=== PATIENT | male | born 1975 | race Caucasian/White ===

== ENCOUNTER 2016-11-15 19:59 | Emergency (ER) ==
[2016-11-15 20:14] VITALS: BP 149/92; TEMP 98.2; BMI 22.3
[2016-11-15] MEDS ORDERED: PHENERGAN WITH CODEINE 6.25/10 MG/5 ML PO STA (20:15)
[2016-11-15] MEDS ORDERED: DUONEB NEB STA (20:15)
[2016-11-15] MEDS ORDERED: DECADRON 4 MG/ML SDV IM STA (20:15)
--- NOTE | 2016-11-15 20:18 | ED.PDOC ---
General ED Provider: Dr. NORMA JETT Chief Complaint: Cough Stated Complaint: Been coughing, congestion, getting sputum, hurts to cough, now wheezing. Time Seen by Physician: 20:16 Mode of Arrival: Walk-In Information Source: Patient Primary Care Provider: TULIO TINEO Nursing and Triage Documentation Reviewed and Agree: Yes Respiratory Complaint Exam - Respiratory Complaint/Exam Symptoms Are: Still present Timing: Constant Initial Severity: Moderate Current Severity: Moderate Location: Chest Character: Reports: Productive cough Aggravating: Reports: URI Alleviating: Reports: None Associated Signs and Symptoms: Reports: URI, Nasal congestion. Denies: Rapid breathing, Dyspnea, Fever, Chills, Chest pain, Pleuritic chest pain, Wheezing, Hemoptysis, Dizziness, Calf pain, Calf swelling, Edema, Hoarseness, Sinus discomfort, Vomiting, Sore throat, Weight loss, Decreased oral intake, Increased thirst, Increased appetite, Increased urination Related History: Reports: Similar episode History of Healthcare-Acquired Pneumonia: No Related Surgical History: Reports: None Pulmonary Embolism Risk Factors: None Cardiac Risk Factors: Reports: None Pseudomonas Risk Factors: Reports: None Tuberculosis Risk Factors: Reports: None Status Asthmaticus Risk Factors: Reports: None Home Oxygen Use: No Recent Stress Test: No Recent Echo/LV Function: No Respiratory Distress: None Inadequate Respiratory Effort: No Dysphagia Present: No Stridor Present: No JVD Present: No Accessory Muscle Use: No Retractions: Not Present Sinus Tenderness: None Grunting Respirations: No Kussmaul Respirations: No Differential Diagnoses: Pneumonia, Bronchitis Review of Systems - Review Of Systems Constitutional: Reports: Malaise, Weakness Eyes: Reports: No symptoms Ears, Nose, Mouth, Throat: Reports: No symptoms Respiratory: Reports: Cough, Wheezing Cardiac: Reports: No symptoms GI: Reports: No symptoms : Reports: No symptoms Musculoskeletal: Reports: No symptoms Skin: Reports: No symptoms Neurological: Reports: No symptoms Endocrine: Reports: No symptoms Hematologic/Lymphatic: Reports: No symptoms All Other Systems: Reviewed and Negative Past Medical History - Past Medical History Previously Healthy: No Endocrine: Reports: None Cardiovascular: Reports: None Respiratory: Reports: None Hematological: Reports: None Gastrointestinal: Reports: None Genitourinary: Reports: None Neuro/Psych: Reports: Seizure Musculoskeletal: Reports: None Cancer: Reports: None Other Pertinent Past Medical History: Brain cyst - Surgical History General Surgical History: Reports: Other (Had left facial cyst removed today ) - Family History Family History: Reports: None - Social History Smoking Status: Current every day smoker, Heavy tobacco smoker Smoking Cessation Counseling Time: > 10 min Hx Substance Use: Yes ( A TEENAGER) Alcohol Screening: Occasionally - Immunizations Tetanus Shot up to Date: Yes Physical Exam - Physical Exam Appearance: Ill-appearing Ill-appearing: Mild Eyes: MANDO, EOMI, Conjunctiva clear ENT: Ears normal, Nose normal, Oropharynx normal Respiratory: Wheezes Cardiovascular: RRR, Pulses normal, No rub, No murmur GI/: Soft, Nontender, No masses, Bowel sounds normal, No Organomegaly Musculoskeletal: Normal strength, ROM intact, No edema, No calf tenderness Skin: Warm, Dry, Normal color Neurological: Sensation intact, Motor intact, Reflexes intact, Cranial nerves intact, Alert, Oriented Psychiatric: Affect appropriate, Mood appropriate Interpretation - Radiology Interpretation Radiology Interpretation By: ED Physician Radiology Results: Negative Critical Care Note - Critical Care Note Total Time (mins): 0 Course - Course Orders, Labs, Meds: Orders Category Date Time Status NEBULIZER TREATMENT Stat CARDIO 11/15/16 20:16 Ordered Codeine/Promethazine Syrup [Phenergan with Codeine 6.25 MEDS 11/15/16 20:15 Discontinued /10 mg/5 ml] 10 ml PO ONCE STA Dexamethasone 4 mg/ml Inj [Decadron 4 mg/ml Sdv] MEDS 11/15/16 20:15 Discontinued 4 mg IM ONCE STA Ipratropium/Albuterol Neb [Duoneb] MEDS 11/15/16 20:15 Discontinued 1 vial NEB ONCE STA CHEST, 2 VIEWS PA & LAT Stat RADS 11/15/16 20:15 Taken Medications Discontinued Medications Generic Name Dose Route Start Last Admin Trade Name Freq PRN Reason Stop Dose Admin Albuterol/Ipratropium 1 vial 11/15/16 20:15 11/15/16 20:27 Duoneb NEB 11/15/16 20:16 1 vial ONCE STA Administration Dexamethasone Sodium Phosphate 4 mg 11/15/16 20:15 11/15/16 20:25 Decadron 4 Mg/Ml Sdv IM 11/15/16 20:16 4 mg ONCE STA Administration Promethazine HCl/Codeine 10 ml 11/15/16 20:15 11/15/16 20:24 Phenergan With Codeine 6.25/10 Mg/5 Ml PO 11/15/16 20:16 10 ml ONCE STA Administration Vital Signs: Temp Pulse Resp BP Pulse Ox 11/15/16 20:00 98.2 F 83 20 149/92 H 100 Departure - Departure Time of Disposition: 20:48 Disposition: HOME SELF-CARE Discharge Problem: URTI (acute upper respiratory infection) Instructions: Upper Respiratory Infection (ED) Condition: Stable Pt referred to PMD for follow-up: Yes Additional Instructions: ADVISED TO QUITE SMOKING, SMOKING LUNG CANCER RISK DISCUSSED. IF NOT BETTER NEEDS F/U Prescriptions: Albuterol Sulfate [Ventolin Hfa] 18 gm IH TID #1 hfa.aer.ad Azithromycin [Zithromax] 250 mg PO DIRECTED #6 tablet Codeine/Promethazine Syrup [Phenergan with Codeine 6.25/10 mg/5 ml] 5 ml PO Q8H #1 bottle Methylprednisolone [Medrol Dosepak] 4 mg PO DIRECTED #1 pkg Allergies/Adverse Reactions: Allergies ceftriaxone [From Rocephin] Adverse Reaction (Verified 11/15/16 20:09) latex Adverse Reaction (Verified 11/15/16 20:09) levetiracetam [From Keppra] Adverse Reaction (Verified 11/15/16 20:09) Penicillins Adverse Reaction (Verified 11/15/16 20:09) amoxcillin Adverse Reaction (Severe, Uncoded 11/15/16 20:09) Anaphylaxis Home Medications: Ambulatory Orders Calcium Carbonate [Calcium] 500 mg PO DAILY 03/31/14 Divalproex Sodium [Depakote] 500 mg PO BID 03/31/14 Epinephrine [Epipen 2-Gal] 0.3 mg IJ ONCE PRN #1 ml 07/11/15 Albuterol Sulfate [Ventolin Hfa] 18 gm IH TID #1 hfa.aer.ad 11/15/16 Azithromycin [Zithromax] 250 mg PO DIRECTED #6 tablet 11/15/16 Carboxymethylcellulose Sodium [Refresh Tears] 1 drop OP QID 11/15/16 Codeine/Promethazine Syrup [Phenergan with Codeine 6.25/10 mg/5 ml] 5 ml PO Q8H #1 bottle 11/15/16 Methylprednisolone [Medrol Dosepak] 4 mg PO DIRECTED #1 pkg 11/15/16 Valacyclovir HCl [Valtrex] 500 mg PO Q12HR 11/15/16 Disposition Discussed With: Patient, Family
[2016-11-15] MEDS ORDERED: ZITHROMAX PO STA (20:49)
[2016-11-15] MEDS ORDERED: ZITHROMAX ONE (20:50)
--- NOTE | 2016-11-16 06:51 | DI ---
EXAM: PA and lateral views of the chest HISTORY: Cough. COMPARISON: Chest x-ray 07/23/2015 FINDINGS: The cardiomediastinal silhouette is normal. There is no pneumothorax or pleural effusion . There is no consolidation, nodule or mass. The osseous structures are unremarkable. Surgical cli ps are noted in the right upper quadrant consistent with cholecystectomy. IMPRESSION: No acute cardiopulmonary process
== END 2016-11-15 20:55 | disposition home or self-care (01) ==
LOC: ED 19:59
DX: J06.9 Acute upper respiratory infection, unspecified (principal); F17.210 Nicotine dependence, cigarettes, uncomplicated; Z79.899 Other long term (current) drug therapy
CPT/HCPCS: 94640; 96372; 99283

== ENCOUNTER 2016-11-16 09:42 | Outpatient (CLI) | payer OTHER ==
[2016-11-15 20:14] VITALS: BMI 22.3
== END 2016-11-16 09:43 | disposition home or self-care (01) ==
LOC: LAB 09:42
PROVIDERS: ATTEND Clinical Nurse Specialist Adult Health
DX: Z51.81 Encounter for therapeutic drug level monitoring (principal); Z79.899 Other long term (current) drug therapy
CPT/HCPCS: 36415; 80164

== ENCOUNTER 2016-11-23 17:21 | Emergency (ER) ==
[2016-11-23 17:22] VITALS: BMI 22.3
[2016-11-23 17:30] VITALS: BP 135/91; TEMP 98.2
[2016-11-23] MEDS ORDERED: DUONEB NEB STA (17:43)
--- NOTE | 2016-11-23 17:52 | ED.PDOC ---
General ED Provider: Dr. NIKKI MCNULTY Chief Complaint: Nausea/Vomiting Mode of Arrival: Walk-In Information Source: Patient Primary Care Provider: TULIO TINEO Past Medical History - Past Medical History Previously Healthy: No Endocrine: Reports: None Cardiovascular: Reports: None Respiratory: Reports: None Hematological: Reports: None Gastrointestinal: Reports: None Genitourinary: Reports: None Neuro/Psych: Reports: Seizure Musculoskeletal: Reports: None Cancer: Reports: None Other Pertinent Past Medical History: Brain cyst - Surgical History General Surgical History: Reports: Other (Had left facial cyst removed today ) - Family History Family History: Reports: None - Social History Smoking Status: Current every day smoker, Heavy tobacco smoker Hx Substance Use: Yes ( A TEENAGER) Alcohol Screening: Occasionally Course - Course Orders, Labs, Meds: Orders Category Date Time Status EKG-(ED ONLY) Stat CARDIO 11/23/16 17:45 Ordered NEBULIZER TREATMENT Stat CARDIO 11/23/16 17:43 Ordered AMYLASE Stat LAB 11/23/16 17:43 Ordered CBC W/ AUTO DIFF Stat LAB 11/23/16 17:43 Ordered COMPREHENSIVE METABOLIC PANEL Stat LAB 11/23/16 17:43 Ordered LIPASE Stat LAB 11/23/16 17:43 Ordered RAPID FLU A/B Stat LAB 11/23/16 17:44 Uncollected STREP SCREEN Stat LAB 11/23/16 17:44 Uncollected Ipratropium/Albuterol Neb [Duoneb] MEDS 11/23/16 17:43 Stat 1 vial NEB ONCE STA CHEST, 2 VIEWS PA & LAT Stat RADS 11/23/16 17:[address] ABDOMEN/PELVIS WO CONTRAST Stat RADS 11/23/16 17:43 Ordered Medications Discontinued Medications Generic Name Dose Route Start Last Admin Trade Name Freq PRN Reason Stop Dose Admin Albuterol/Ipratropium 1 vial 11/23/16 17:43 Duoneb NEB 11/23/16 17:44 ONCE STA Vital Signs: Temp Pulse Resp BP Pulse Ox 11/23/16 17:22 98.2 F 90 20 135/91 H 98 Departure - Departure Allergies/Adverse Reactions: Allergies ceftriaxone [From Rocephin] Adverse Reaction (Verified 11/23/16 17:31) latex Adverse Reaction (Verified 11/23/16 17:31) levetiracetam [From Keppra] Adverse Reaction (Verified 11/23/16 17:31) Penicillins Adverse Reaction (Verified 11/23/16 17:31) amoxcillin Adverse Reaction (Severe, Uncoded 11/15/16 20:09) Anaphylaxis Home Medications: Ambulatory Orders Calcium Carbonate [Calcium] 500 mg PO DAILY 03/31/14 Divalproex Sodium [Depakote] 500 mg PO BID 03/31/14 Epinephrine [Epipen 2-Gal] 0.3 mg IJ ONCE PRN #1 ml 07/11/15 Albuterol Sulfate [Ventolin Hfa] 18 gm IH TID #1 hfa.aer.ad 11/15/16 Carboxymethylcellulose Sodium [Refresh Tears] 1 drop OP QID 11/15/16 Codeine/Promethazine Syrup [Phenergan with Codeine 6.25/10 mg/5 ml] 5 ml PO Q8H #1 bottle 11/15/16 Valacyclovir HCl [Valtrex] 500 mg PO Q12HR 11/15/16
[2016-11-23 17:55] LABS: BASOPHILS # (AUTO) 0.1 K/uL (0-0.2); BASOPHILS % (AUTO) 0.4 % (0.0-3.0); EOSINOPHILS # (AUTO) 0.1 K/ul (0.0-0.7); EOSINOPHILS % (AUTO) 0.7 % (0.0-7.0); HEMATOCRIT 50.9 % (42.0-52.0); IMMATURE GRANULOCYTE % (AUTO) 0.3 % (0.0-5.0); LYMPHOCYTES % (AUTO) 16.7 (10.0-50.0); MEAN CORPUSCULAR HEMOGLOBIN 32.2 pg (27.0-31.0); MEAN CORPUSCULAR HGB CONC 35.4 (31.8-35.4); MEAN CORPUSCULAR VOLUME 91.1 fl (80.0-94.0); MONOCYTES # (AUTO) 0.9 K/uL (0.4-2.0); MONOCYTES % (AUTO) 5.3 (0-10); NEUTROPHILS # (AUTO) 13.6 K/ul (2.0-6.9); NEUTROPHILS % (AUTO) 76.6; PLATELET COUNT 294 10^3/uL (140-440); RED BLOOD COUNT 5.59 10^6/ul (4.70-6.10); WHITE BLOOD COUNT 17.81 K/ul (4.2-10.2)
--- NOTE | 2016-11-23 18:09 | ED.PDOC ---
General ED Provider: Dr. NIKKI MCNULTY Chief Complaint: Nausea/Vomiting Stated Complaint: ABDOMINAL PAIN Time Seen by Physician: 17:30 Mode of Arrival: Walk-In Information Source: Patient Exam Limitations: No limitations Primary Care Provider: TULIO TINEO Nursing and Triage Documentation Reviewed and Agree: Yes GI Complaint Exam - Abdominal Pain Complaint/Exam Onset: Gradual (TODAY 5 HRS AGO) Duration: 1 HR AGOI MORE PAIN Symptoms Are: Still present (VOMITED X 6) Initial Severity: Moderate Current Severity: None Location of Pain: RLQ, LLQ Character: Reports: Aching Aggravating: Reports: None Alleviating: Reports: None Associated Signs and Symptoms: Reports: Nausea, Vomiting. Denies: Diaphoresis, Fever, Cough, Chest pain, Dizziness, Back pain, Constipation, Blood in stool, Dysuria, Urinary frequency, Decreased urine output, Decreased appetite, Discharge, Diarrhea, Decreased activity AAA Risk Factors: Reports: None Cardiac Risk Factors: Reports: None Testicular Torsion Risk Factors: Reports: None Surgical Obstruction Risk Factors: Reports: None Related Surgical History: Reports: Cholecystectomy Abdominal Findings: Absent: Pulsatile mass (GAURDING) Quality Indicators for AMI: EKG in 10min. Quality Indicators for Cardiac Chest Pain: EKG in 10min. Quality Indicator For Non-Traumatic Chest Pain/Syncope: EKG Performed Review of Systems - Review Of Systems Constitutional: Reports: No symptoms Eyes: Reports: No symptoms Ears, Nose, Mouth, Throat: Reports: No symptoms Respiratory: Reports: No symptoms Cardiac: Reports: No symptoms GI: Reports: Abdominal pain, Nausea, Vomiting : Reports: No symptoms Musculoskeletal: Reports: No symptoms Skin: Reports: No symptoms Neurological: Reports: No symptoms Endocrine: Reports: No symptoms Hematologic/Lymphatic: Reports: No symptoms All Other Systems: Reviewed and Negative Past Medical History - Past Medical History Previously Healthy: No Endocrine: Reports: None Cardiovascular: Reports: None Respiratory: Reports: None Hematological: Reports: None Gastrointestinal: Reports: None Genitourinary: Reports: None Neuro/Psych: Reports: Seizure Musculoskeletal: Reports: None Cancer: Reports: None Other Pertinent Past Medical History: Brain cyst - Surgical History General Surgical History: Reports: Other (Had left facial cyst removed today ) - Family History Family History: Reports: None - Social History Smoking Status: Current every day smoker, Heavy tobacco smoker Hx Substance Use: Yes ( A TEENAGER) Alcohol Screening: Occasionally Physical Exam - Physical Exam Appearance: Well-appearing, No pain distress, Well-nourished Eyes: MANDO, EOMI, Conjunctiva clear ENT: Ears normal, Nose normal, Oropharynx normal Respiratory: Airway patent, Breath sounds clear, Breath sounds equal, Respirations nonlabored Cardiovascular: RRR, Pulses normal, No rub, No murmur GI/: Soft, Nontender, No masses, Bowel sounds normal, No Organomegaly Musculoskeletal: Normal strength, ROM intact, No edema, No calf tenderness Skin: Warm, Dry, Normal color Neurological: Sensation intact, Motor intact, Reflexes intact, Cranial nerves intact, Alert, Oriented Psychiatric: Affect appropriate, Mood appropriate Critical Care Note - Critical Care Note Total Time (mins): 0 Course - Course Hematology/Chemistry: 11/23/16 17:45 11/23/16 17:45 Orders, Labs, Meds: Lab Review 11/23/16 17:45 WBC 17.81 H RBC 5.59 Hgb 18.0 Hct 50.9 MCV 91.1 MCH 32.2 H MCHC 35.4 RDW Coeff of Dann 14.0 Plt Count 294 Immature Gran % (Auto) 0.3 Neut % (Auto) 76.6 Lymph % (Auto) 16.7 [place] % (Auto) 5.3 Eos % (Auto) 0.7 Baso % (Auto) 0.4 Immature Gran # (Auto) 0.1 Neut # 13.6 H Lymph # 3.0 [place] # 0.9 Eos # 0.1 Baso # 0.1 Sodium 138 Potassium 3.9 Chloride 101 Carbon Dioxide 24 Anion Gap 16.9 BUN 7 Creatinine 0.79 Estimated GFR (MDRD) 109.00 BUN/Creatinine Ratio 8.86 Glucose 81 Calcium 9.7 Total Bilirubin 0.93 AST 15 ALT 11 L Alkaline Phosphatase 63 Total Protein 7.8 Albumin 4.3 Globulin 3.5 Albumin/Globulin Ratio 1.23 Amylase 83 Lipase 16 Influenza A (Rapid) Negative Influenza B (Rapid) Negative Orders Category Date Time Status EKG-(ED ONLY) Stat CARDIO 11/23/16 17:45 Completed NEBULIZER TREATMENT Stat CARDIO 11/23/16 17:43 Completed AMYLASE Stat LAB 11/23/16 17:45 Completed CBC W/ AUTO DIFF Stat LAB 11/23/16 17:45 Completed COMPREHENSIVE METABOLIC PANEL Stat LAB 11/23/16 17:45 Completed LIPASE Stat LAB 11/23/16 17:45 Completed MOLECULAR GROUP A STREP Stat LAB 11/23/16 17:45 Results RAPID FLU A/B Stat LAB 11/23/16 17:45 Completed STREP SCREEN Stat LAB 11/23/16 17:45 Results Ipratropium/Albuterol Neb [Duoneb] MEDS 11/23/16 17:43 Discontinued 1 vial NEB ONCE STA CHEST, 2 VIEWS PA & LAT Stat RADS 11/23/16 17:[address] ABDOMEN/PELVIS WO CONTRAST Stat RADS 11/23/16 17:43 Completed Medications Discontinued Medications Generic Name Dose Route Start Last Admin Trade Name Freq PRN Reason Stop Dose Admin Albuterol/Ipratropium 1 vial 11/23/16 17:43 Duoneb NEB 11/23/16 17:44 ONCE STA Vital Signs: Temp Pulse Resp BP Pulse Ox 11/23/16 17:22 98.2 F 90 20 135/91 H 98 Departure - Departure Time of Disposition: 18:43 Disposition: HOME SELF-CARE Discharge Problem: Nausea, Vomiting Abdominal pain Qualifiers: Abdominal location: unspecified location Qualifier Code: (R10.9) Unspecified abdominal pain Instructions: Acute Abdominal Pain (ED), Abdominal Pain (ED) Condition: Good Pt referred to PMD for follow-up: No Additional Instructions: Please call your Family Physician as soon as possible to schedule a follow-up appointment. Allergies/Adverse Reactions: Allergies ceftriaxone [From Rocephin] Adverse Reaction (Verified 11/23/16 17:31) latex Adverse Reaction (Verified 11/23/16 17:31) levetiracetam [From Keppra] Adverse Reaction (Verified 11/23/16 17:31) Penicillins Adverse Reaction (Verified 11/23/16 17:31) amoxcillin Adverse Reaction (Severe, Uncoded 11/15/16 20:09) Anaphylaxis Home Medications: Ambulatory Orders Calcium Carbonate [Calcium] 500 mg PO DAILY 03/31/14 Divalproex Sodium [Depakote] 500 mg PO BID 03/31/14 Epinephrine [Epipen 2-Gal] 0.3 mg IJ ONCE PRN #1 ml 07/11/15 Albuterol Sulfate [Ventolin Hfa] 18 gm IH TID #1 hfa.aer.ad 11/15/16 Carboxymethylcellulose Sodium [Refresh Tears] 1 drop OP QID 11/15/16 Codeine/Promethazine Syrup [Phenergan with Codeine 6.25/10 mg/5 ml] 5 ml PO Q8H #1 bottle 11/15/16 Valacyclovir HCl [Valtrex] 500 mg PO Q12HR 11/15/16 Disposition Discussed With: Patient, Family
[2016-11-23 18:15] LABS: ALBUMIN 4.3 g/dL (3.4-5.0); ALBUMIN/GLOBULIN RATIO 1.23; ANION GAP 16.9; BILIRUBIN,TOTAL 0.93 mg/dL (0.00-1.20); BUN/CREATININE RATIO 8.86; CALCIUM 9.7 mg/dL (8.2-10.2); CREATININE 0.79 mg/dL (0.60-1.10); POTASSIUM 3.9 mmol/L (3.5-5.1); TOTAL PROTEIN 7.8 g/dL (6.4-8.2)
[2016-11-23 18:17] LABS: FLU INTERNAL QC INTERNAL QC VALID; RAPID FLU A NEGATIVE (NEGATIVE); RAPID FLU B NEGATIVE (NEGATIVE)
--- NOTE | 2016-11-23 18:30 | CT ---
EXAM: CT of the abdomen pelvis without contrast History: Abdominal pain. Comparison: CT abdomen pelvis 07/23/2015 Technique: Multiplanar CT images through the abdomen pelvis were obtained without the administratio n of IV contrast Findings: Lung bases are free of consolidation. Calcified granuloma again seen within the right lo wer lobe. No acute osseous abnormalities. Cholecystectomy clips. No focal liver lesions. Calcified granulomas within the spleen. No renal st ones and no hydronephrosis. The visualized appendix is not dilated or inflamed. Fluid distended st omach. There are prominent fluid filled loops of small bowel and fluid is seen within portions of t he colon. No free air. No ascites. No peripancreatic inflammation. Adrenal glands are unremarkab le. Mild atherosclerotic vascular calcifications. Bladder is not well distended but there is no fo maico bladder wall thickening. No perirectal inflammation. Prostate is not enlarged. Impression: CT findings are consistent with a mild gastroenterocolitis. There is no specific evide nce for bowel obstruction.
--- NOTE | 2016-11-23 18:34 | DI ---
EXAM: Two views of the chest. History: Cough. Comparison: Chest radiograph 11/15/2016 Findings: Heart size is normal. No focal consolidation. No appreciable pleural fluid and no pneum othorax. No acute osseous abnormalities. Impression: No acute cardiopulmonary process.
== END 2016-11-23 19:13 | disposition home or self-care (01) ==
LOC: ED 17:21
DX: R11.2 Nausea with vomiting, unspecified (principal); R10.30 Lower abdominal pain, unspecified; F17.210 Nicotine dependence, cigarettes, uncomplicated; Z98.890 Other specified postprocedural states; Z79.899 Other long term (current) drug therapy
CPT/HCPCS: 36415; 80053; 82150; 83690; 85025; 87651; 87804; 87880; 93005; 93010; 99283

== ENCOUNTER → 2017-04-29 | Outpatient (POV) | LOC: OUTPT 00:01 | PROVIDERS: ATTEND Otolaryngology | DX: H91.90 Unspecified hearing loss, unspecified ear (principal) | CPT/HCPCS: 92557; 92567 ==

== ENCOUNTER 2017-09-06 11:59 | Outpatient (CLI) ==
[2017-09-06 12:44] LABS: BASOPHILS # (AUTO) 0.1 K/uL (0-0.2); BASOPHILS % (AUTO) 0.8 % (0.0-3.0); EOSINOPHILS # (AUTO) 0.1 K/ul (0.0-0.7); EOSINOPHILS % (AUTO) 0.7 % (0.0-7.0); HEMATOCRIT 46.1 % (42.0-52.0); HEMOGLOBIN 16.6 g/dl (14.0-18.0); IMMATURE GRANULOCYTE % (AUTO) 0.3 % (0.0-5.0); LYMPHOCYTES # (AUTO) 3.2 K/uL (0.60-3.4); LYMPHOCYTES % (AUTO) 36.4 (10.0-50.0); MEAN CORPUSCULAR HEMOGLOBIN 32.5 pg (27.0-31.0); MEAN CORPUSCULAR VOLUME 90.4 fl (80.0-94.0); MONOCYTES # (AUTO) 0.7 K/uL (0.4-2.0); MONOCYTES % (AUTO) 7.6 (0-10); NEUTROPHILS # (AUTO) 4.8 K/ul (2.0-6.9); NEUTROPHILS % (AUTO) 54.2; PLATELET COUNT 262 10^3/uL (140-440)
[2017-09-06 13:39] LABS: ALBUMIN 3.9 g/dL (3.4-5.0); ALBUMIN/GLOBULIN RATIO 1.22; ANION GAP 12.1; BILIRUBIN,TOTAL 0.4 mg/dL (0.00-1.20); BUN/CREATININE RATIO 6.66; CALCIUM 9.9 mg/dL (8.2-10.2); CREATININE 0.75 mg/dL (0.60-1.10); POTASSIUM 4.1 mmol/L (3.5-5.1); TOTAL PROTEIN 7.1 g/dL (6.4-8.2); VALPORIC ACID (DEPAKENE) 11.1 ug/mL (50.00-100.00)
== END 2017-09-06 12:00 | disposition home or self-care (01) ==
LOC: LAB 11:59
PROVIDERS: ATTEND Clinical Nurse Specialist Adult Health
DX: G40.419 Other generalized epilepsy and epileptic syndromes, intractable, without status epilepticus (principal); Z79.899 Other long term (current) drug therapy
CPT/HCPCS: 36415; 80053; 80164; 85025

== ENCOUNTER 2017-09-11 14:08 | Emergency (ER) ==
[2017-09-11 14:16] VITALS: BP 152/92; TEMP 96.9; BMI 23.0
[2017-09-11] MEDS ORDERED: DECADRON 4 MG/ML SDV IM STA (14:43)
[2017-09-11] MEDS ORDERED: ZITHROMAX PO STA (14:43)
[2017-09-11] MEDS ORDERED: TYLENOL/CODEINE ELIXIR 120/12 MG/5 ML PO STA (14:44)
[2017-09-11] MEDS ORDERED: DUONEB NEB STA (14:44)
[2017-09-11 14:58] LABS: BASOPHILS # (AUTO) 0.1 K/uL (0-0.2); BASOPHILS % (AUTO) 0.7 % (0.0-3.0); EOSINOPHILS % (AUTO) 0.5 % (0.0-7.0); HEMATOCRIT 42.4 % (42.0-52.0); HEMOGLOBIN 15.3 g/dl (14.0-18.0); IMMATURE GRANULOCYTE % (AUTO) 0.3 % (0.0-5.0); LYMPHOCYTES # (AUTO) 2.3 K/uL (0.60-3.4); LYMPHOCYTES % (AUTO) 30.6 (10.0-50.0); MEAN CORPUSCULAR HEMOGLOBIN 32.3 pg (27.0-31.0); MEAN CORPUSCULAR HGB CONC 36.1 (31.8-35.4); MEAN CORPUSCULAR VOLUME 89.5 fl (80.0-94.0); MONOCYTES # (AUTO) 0.6 K/uL (0.4-2.0); MONOCYTES % (AUTO) 8.1 (0-10); NEUTROPHILS # (AUTO) 4.5 K/ul (2.0-6.9); NEUTROPHILS % (AUTO) 59.8; PLATELET COUNT 211 10^3/uL (140-440); RED BLOOD COUNT 4.74 10^6/ul (4.70-6.10); WHITE BLOOD COUNT 7.43 K/ul (4.2-10.2)
[2017-09-11 15:28] LABS: ALBUMIN 3.6 g/dL (3.4-5.0); ALBUMIN/GLOBULIN RATIO 1.2; ANION GAP 12.7; BILIRUBIN,TOTAL 0.29 mg/dL (0.00-1.20); BUN/CREATININE RATIO 5.47; CALCIUM 9.5 mg/dL (8.2-10.2); CREATININE 0.73 mg/dL (0.60-1.10); POTASSIUM 3.7 mmol/L (3.5-5.1); TOTAL PROTEIN 6.6 g/dL (6.4-8.2)
[2017-09-11 15:34] LABS: FLU INTERNAL QC INTERNAL QC VALID; RAPID FLU A NEGATIVE (NEGATIVE); RAPID FLU B NEGATIVE (NEGATIVE)
--- NOTE | 2017-09-11 15:40 | DI ---
Exam: Two x-rays of the chest. Comparison: 11/23/2016. Reason for exam: Cough. FINDINGS: No pneumothorax, pleural effusion, or focal consolidation. The cardiac silhouette is not enlarged. The imaged osseous structures appear grossly unremarkable without acute fracture. Impression: No acute cardiopulmonary process.
--- NOTE | 2017-09-11 16:16 | ED.PDOC ---
General ED Provider: Dr. NIKKI MCNULTY Chief Complaint: Respiratory Complaint Stated Complaint: cough, chills Time Seen by Physician: 14:24 Mode of Arrival: Walk-In Information Source: Patient Exam Limitations: No limitations Primary Care Provider: TULIO TINEO Nursing and Triage Documentation Reviewed and Agree: Yes Respiratory Complaint Exam - Respiratory Complaint/Exam Onset/Duration: 2 days Symptoms Are: Still present Timing: Intermittent Initial Severity: Moderate Current Severity: Mild Location: Nose, Throat, Chest Character: Reports: Non-productive cough Aggravating: Reports: None Alleviating: Reports: Spontaneous resolution Associated Signs and Symptoms: Reports: Wheezing, URI, Nasal congestion. Denies : Rapid breathing, Dyspnea, Fever, Chills, Chest pain, Pleuritic chest pain, Hemoptysis, Dizziness, Calf pain, Calf swelling, Edema, Hoarseness, Sinus discomfort, Vomiting, Sore throat, Weight loss, Decreased oral intake, Increased thirst, Increased appetite, Increased urination Related History: Reports: Similar episode History of Healthcare-Acquired Pneumonia: No Related Surgical History: Reports: None Pulmonary Embolism Risk Factors: None Cardiac Risk Factors: Reports: None Pseudomonas Risk Factors: Reports: None Tuberculosis Risk Factors: Reports: None Status Asthmaticus Risk Factors: Reports: None Home Oxygen Use: No Recent Stress Test: No Recent Echo/LV Function: No Current Antibiotic Use: No Current Asthma Medication Use: No Respiratory Distress: None Inadequate Respiratory Effort: No Dysphagia Present: No Stridor Present: No JVD Present: No Accessory Muscle Use: No Retractions: Not Present Diminished Breath Sounds: No Sinus Tenderness: None Grunting Respirations: No Kussmaul Respirations: No Differential Diagnoses: Pneumonia, Bronchitis Review of Systems - Review Of Systems Constitutional: Reports: Malaise Eyes: Reports: No symptoms Ears, Nose, Mouth, Throat: Reports: No symptoms Respiratory: Reports: Cough, Wheezing Cardiac: Reports: No symptoms GI: Reports: No symptoms : Reports: No symptoms Musculoskeletal: Reports: No symptoms Skin: Reports: No symptoms Neurological: Reports: No symptoms Endocrine: Reports: No symptoms Hematologic/Lymphatic: Reports: No symptoms All Other Systems: Reviewed and Negative Past Medical History - Past Medical History Previously Healthy: No Endocrine: Reports: None Cardiovascular: Reports: None Respiratory: Reports: None Hematological: Reports: None Gastrointestinal: Reports: None Genitourinary: Reports: None Neuro/Psych: Reports: Seizure Musculoskeletal: Reports: None Cancer: Reports: None Other Pertinent Past Medical History: Brain cyst - Surgical History General Surgical History: Reports: Other (Had left facial cyst removed today ) - Family History Family History: Reports: None - Social History Smoking Status: Current some day smoker Hx Substance Use: No Alcohol Screening: Occasionally - Immunizations Tetanus Shot up to Date: Yes Physical Exam - Physical Exam Appearance: Well-appearing, No pain distress, Well-nourished Eyes: MANDO, EOMI, Conjunctiva clear ENT: Ears normal, Nose normal, Oropharynx normal Respiratory: Rhonchi Cardiovascular: RRR, Pulses normal, No rub, No murmur GI/: Soft, Nontender, No masses, Bowel sounds normal, No Organomegaly Musculoskeletal: Normal strength, ROM intact, No edema, No calf tenderness Skin: Warm, Dry, Normal color Neurological: Sensation intact, Motor intact, Reflexes intact, Cranial nerves intact, Alert, Oriented Psychiatric: Affect appropriate, Mood appropriate Interpretation - Radiology Interpretation Radiology Interpretation By: Radiologist Radiology Results: No acute changes Exam Interpreted: CXR Critical Care Note - Critical Care Note Total Time (mins): 0 Course - Course Hematology/Chemistry: 09/11/17 14:52 09/11/17 14:52 Orders, Labs, Meds: Lab Review 09/11/17 09/11/17 09/11/17 14:52 14:52 15:10 WBC 7.43 RBC 4.74 Hgb 15.3 Hct 42.4 MCV 89.5 MCH 32.3 H MCHC 36.1 H RDW Coeff of Dann 13.2 Plt Count 211 Immature Gran % (Auto) 0.3 Neut % (Auto) 59.8 Lymph % (Auto) 30.6 [place] % (Auto) 8.1 Eos % (Auto) 0.5 Baso % (Auto) 0.7 Immature Gran # (Auto) 0.0 Neut # 4.5 Lymph # 2.3 [place] # 0.6 Eos # 0.0 Baso # 0.1 Sodium 137 Potassium 3.7 Chloride 104 Carbon Dioxide 24 Anion Gap 12.7 BUN 4 L Creatinine 0.73 Estimated GFR (MDRD) 119.00 BUN/Creatinine Ratio 5.47 Glucose 90 Calcium 9.5 Total Bilirubin 0.29 AST 11 L ALT 13 Alkaline Phosphatase 56 Total Protein 6.6 Albumin 3.6 Globulin 3.0 Albumin/Globulin Ratio 1.20 Influenza A (Rapid) Negative Influenza B (Rapid) Negative Orders Category Date Time Status NEBULIZER TREATMENT Stat CARDIO 09/11/17 14:44 Completed CBC W/ AUTO DIFF Stat LAB 09/11/17 14:52 Completed COMPREHENSIVE METABOLIC PANEL Stat LAB 09/11/17 14:52 Completed MOLECULAR GROUP A STREP Stat LAB 09/11/17 15:10 Results RAPID FLU A/B Stat LAB 09/11/17 15:10 Completed STREP SCREEN Stat LAB 09/11/17 15:10 Results Acetaminophen with Codeine [Tylenol/Codeine Elixir 120/ MEDS 09/11/17 14:44 Discontinued 12 mg/5 ml] 15 ml PO ONCE STA Azithromycin [Zithromax] MEDS 09/11/17 14:43 Discontinued 1,000 mg PO ONCE STA Dexamethasone 4 mg/ml Inj [Decadron 4 mg/ml Sdv] MEDS 09/11/17 14:43 Discontinued 8 mg IM ONCE STA Ipratropium/Albuterol Neb [Duoneb] MEDS 09/11/17 14:44 Discontinued 1 vial NEB ONCE STA CHEST, 2 VIEWS PA & LAT Stat RADS 09/11/17 14:45 Completed Medications Discontinued Medications Generic Name Dose Route Start Last Admin Trade Name Freq PRN Reason Stop Dose Admin Acetaminophen/Codeine Phosphate 15 ml 09/11/17 14:44 09/11/17 14:59 Tylenol/Codeine Elixir 120/12 Mg/5 Ml PO 09/11/17 14:45 15 ml ONCE STA Administration Albuterol/Ipratropium 1 vial 09/11/17 14:44 09/11/17 14:57 Duoneb NEB 09/11/17 14:45 1 vial ONCE STA Administration Azithromycin 1,000 mg 09/11/17 14:43 09/11/17 15:02 Zithromax PO 09/11/17 14:44 1,000 mg ONCE STA Administration Dexamethasone Sodium Phosphate 8 mg 09/11/17 14:43 09/11/17 15:03 Decadron 4 Mg/Ml Sdv IM 09/11/17 14:44 8 mg ONCE STA Administration Vital Signs: Temp Pulse Resp BP Pulse Ox 09/11/17 14:10 96.9 F L 82 16 152/92 H 97 Departure - Departure Time of Disposition: 16:16 Disposition: HOME SELF-CARE Discharge Problem: Bronchitis Instructions: Acute Bronchitis (ED), Wheezing (ED), Croup in Adults (ED), Bronchospasm (ED) Condition: Good Pt referred to PMD for follow-up: Yes Additional Instructions: Please call your Family Physician as soon as possible to schedule a follow-up appointment.start pills in am Prescriptions: Hydrocodone/Chlorphen Polis [Tussionex] 5 ml PO Q12HR 5 Days disp.syrin Azithromycin [Zithromax] 500 mg PO DIRECTED #5 tablet Allergies/Adverse Reactions: Allergies ceftriaxone [From Rocephin] Adverse Reaction (Verified 09/11/17 14:20) latex Adverse Reaction (Verified 09/11/17 14:20) levetiracetam [From Keppra] Adverse Reaction (Verified 09/11/17 14:20) Penicillins Adverse Reaction (Verified 09/11/17 14:20) amoxcillin Adverse Reaction (Severe, Uncoded 11/15/16 20:09) Anaphylaxis Home Medications: Ambulatory Orders Divalproex Sodium [Depakote] 500 mg PO BID 03/31/14 Epinephrine [Epipen 2-Gal] 0.3 mg IJ ONCE PRN #1 ml 07/11/15 Carboxymethylcellulose Sodium [Refresh Tears] 1 drop OP QID 11/15/16 Valacyclovir HCl [Valtrex] 500 mg PO Q12HR 11/15/16 Azithromycin [Zithromax] 500 mg PO DIRECTED #5 tablet 09/11/17 Hydrocodone/Chlorphen Polis [Tussionex] 5 ml PO Q12HR 5 Days disp.syrin
== END 2017-09-11 16:24 | disposition home or self-care (01) ==
LOC: ED 14:08
DX: J40 Bronchitis, not specified as acute or chronic (principal); F17.210 Nicotine dependence, cigarettes, uncomplicated
CPT/HCPCS: 36415; 80053; 85025; 87651; 87804; 87880; 94640; 96372; 99283

== ENCOUNTER 2017-11-10 07:06 | Emergency (ER) ==
[2017-11-10 07:10] VITALS: BP 172/100; TEMP 98.9; BMI 22.3
[2017-11-10] MEDS ORDERED: PROTONIX IV IVP STA (07:17)
[2017-11-10] MEDS ORDERED: SOLU-MEDROL 125 MG IVP STA (07:17)
[2017-11-10] MEDS ORDERED: BENADRYL IM STA (07:17)
--- NOTE | 2017-11-10 08:02 | ED.PDOC ---
General ED Provider: Dr. NIKKI MCNULTY Chief Complaint: Allergic Reaction Stated Complaint: rash Time Seen by Physician: 07:00 (no resp issue pt has had similar reaction before ) Mode of Arrival: Walk-In Information Source: Patient, Family Exam Limitations: No limitations Primary Care Provider: TULIO TINEO Nursing and Triage Documentation Reviewed and Agree: Yes Reviewed sepsis parameters & appropriate labs ordered?: Yes System Inflammatory Response Syndrome: Not Applicable Sepsis Protocol: For patient's 13 years and over: Temp is 96.8 and below OR 101 and greater Pulse >90 BPM Resp >20/minute Acutely Altered Mental Status Are patient's symptoms suggestive of a new infection, such as: -Pneumonia -Skin, Soft Tissue -Endocarditis -UTI -Bone, Joint Infection -Implantable Device -Acute Abdominal Infection -Wound Infection -Meningitis -Blood Stream Catheter Infection -Unknown System Inflammatory Response Syndrome: Not Applicable Skin Complaint Exam - Skin Rash/Itching Complaint/Exam Onset/Duration: this morning sudden onset Symptoms Are: Still present Initial Severity: Mild Current Severity: Mild Potential Exposures: Reports: Unknown Aggravating: Reports: None Alleviating: Reports: None Associated Signs and Symptoms: Denies: Difficulty breathing, Fever, Chills Related History: Similar episode Skin Findings: Present: Target lesions, Maculae, Papules Differential Diagnoses: Allergic Reaction Review of Systems - Review Of Systems Constitutional: Reports: No symptoms Eyes: Reports: No symptoms Ears, Nose, Mouth, Throat: Reports: No symptoms Respiratory: Reports: No symptoms Cardiac: Reports: No symptoms GI: Reports: No symptoms : Reports: No symptoms Musculoskeletal: Reports: No symptoms Skin: Reports: Rash Neurological: Reports: No symptoms Endocrine: Reports: No symptoms Hematologic/Lymphatic: Reports: No symptoms All Other Systems: Reviewed and Negative Past Medical History - Past Medical History Previously Healthy: No Endocrine: Reports: None Cardiovascular: Reports: None Respiratory: Reports: None Hematological: Reports: None Gastrointestinal: Reports: None Genitourinary: Reports: None Neuro/Psych: Reports: Seizure Musculoskeletal: Reports: None Cancer: Reports: None Other Pertinent Past Medical History: Brain cyst - Surgical History General Surgical History: Reports: Other (Had left facial cyst removed today ) - Family History Family History: Reports: None - Social History Smoking Status: Current some day smoker Hx Substance Use: No Alcohol Screening: Occasionally Physical Exam - Physical Exam Appearance: Well-appearing, No pain distress, Well-nourished Eyes: MANDO, EOMI, Conjunctiva clear ENT: Ears normal, Nose normal, Oropharynx normal Respiratory: Airway patent, Breath sounds clear, Breath sounds equal, Respirations nonlabored Cardiovascular: RRR, Pulses normal, No rub, No murmur GI/: Soft, Nontender, No masses, Bowel sounds normal, No Organomegaly Musculoskeletal: Normal strength, ROM intact, No edema, No calf tenderness Skin: Warm, Dry (rash chest arm leg ) Neurological: Sensation intact, Motor intact, Reflexes intact, Cranial nerves intact, Alert, Oriented Psychiatric: Affect appropriate, Mood appropriate Critical Care Note - Critical Care Note Total Time (mins): 0 Course - Course Hematology/Chemistry: 11/10/17 07:25 Orders, Labs, Meds: Lab Review 11/10/17 07:25 WBC 14.25 H RBC 5.04 Hgb 16.7 Hct 46.2 MCV 91.7 MCH 33.1 H MCHC 36.1 H RDW Coeff of Dann 13.1 Plt Count 256 Immature Gran % (Auto) 0.3 Neut % (Auto) 67.1 Lymph % (Auto) 24.6 [place] % (Auto) 7.1 Eos % (Auto) 0.6 Baso % (Auto) 0.3 Immature Gran # (Auto) 0.0 Neut # 9.6 H Lymph # 3.5 H [place] # 1.0 Eos # 0.1 Baso # 0.0 Orders Category Date Time Status EKG-(ED ONLY) Stat CARDIO 11/10/17 07:18 Ordered BLOOD CULTURE (ED ONLY) Stat LAB 11/10/17 Ordered CBC W/ AUTO DIFF Stat LAB 11/10/17 07:18 Ordered COMPREHENSIVE METABOLIC PANEL Stat LAB 11/10/17 07:18 Ordered Diphenhydramine Inj [Benadryl] MEDS 11/10/17 07:17 Stat 50 mg IM ONCE STA Methylprednisolone Sod Succ/Pf [Solu-Medrol 125 mg] MEDS 11/10/17 07:17 Stat 125 mg IVP ONCE STA Pantoprazole Sodium [Protonix IV] MEDS 11/10/17 07:17 Stat 40 mg IVP ONCE STA Medications Discontinued Medications Generic Name Dose Route Start Last Admin Trade Name Freq PRN Reason Stop Dose Admin Diphenhydramine HCl 50 mg 11/10/17 07:17 11/10/17 07:23 Benadryl IM 11/10/17 07:18 50 mg ONCE STA Administration Methylprednisolone Sodium Succinate 125 mg 11/10/17 07:17 11/10/17 07:22 Solu-Medrol 125 Mg IVP 11/10/17 07:18 125 mg ONCE STA Administration Pantoprazole Sodium 40 mg 11/10/17 07:17 11/10/17 07:33 Protonix Iv IVP 11/10/17 07:18 40 mg ONCE STA Administration Vital Signs: Temp Pulse Resp BP Pulse Ox 11/10/17 07:07 98.9 F 98 H 20 172/100 H 98 Departure - Departure Time of Disposition: 08:01 Disposition: HOME SELF-CARE Discharge Problem: Allergic state Instructions: Food Allergy (ED), Urticaria (ED), Allergies (ED) Condition: Good Pt referred to PMD for follow-up: Yes IPMP verified?: Yes Additional Instructions: Please call your Family Physician as soon as possible to schedule a follow-up appointment. Allergies/Adverse Reactions: Allergies ceftriaxone [From Rocephin] Adverse Reaction (Verified 11/10/17 07:38) latex Adverse Reaction (Verified 11/10/17 07:38) levetiracetam [From Keppra] Adverse Reaction (Verified 11/10/17 07:38) Penicillins Adverse Reaction (Verified 11/10/17 07:38) amoxcillin Adverse Reaction (Severe, Uncoded 11/15/16 20:09) Anaphylaxis Home Medications: Ambulatory Orders Divalproex Sodium [Depakote] 500 mg PO BID 03/31/14 Epinephrine [Epipen 2-Gal] 0.3 mg IJ ONCE PRN #1 ml 07/11/15 Valacyclovir HCl [Valtrex] 500 mg PO Q12HR 11/15/16 Calcium Carbonate [Calcium] 500 mg PO DAILY 11/10/17
== END 2017-11-10 08:58 | disposition home or self-care (01) ==
LOC: ED 07:06
DX: L50.0 Allergic urticaria (principal); F17.210 Nicotine dependence, cigarettes, uncomplicated
CPT/HCPCS: 36415; 80053; 85025; 87040; 93005; 93010; 96372; 96374; 96375; 99283

== ENCOUNTER 2017-11-18 06:11 | Outpatient (CLI) | END 2017-11-18 06:12 | disposition home or self-care (01) | LOC: LAB 06:11 | PROVIDERS: ATTEND Clinical Nurse Specialist Adult Health | DX: Z51.81 Encounter for therapeutic drug level monitoring (principal) | CPT/HCPCS: 36415; 80164 ==

== ENCOUNTER 2017-11-24 20:21 | Emergency (ER) ==
[2017-11-24 20:21] VITALS: BMI 22.3
[2017-11-24 20:31] VITALS: TEMP 98
[2017-11-24] MEDS ORDERED: SODIUM CHLORIDE 500 ML IV STA (20:39)
[2017-11-24] MEDS ORDERED: SOLU-MEDROL 125 MG IVP STA (20:39)
[2017-11-24] MEDS ORDERED: VISTARIL INJ IM STA (20:39)
[2017-11-24] MEDS: ATARAX ONE ×2 (20:55→20:58)
[2017-11-24] MEDS ORDERED: ATARAX PO STA (20:57)
--- NOTE | 2017-11-24 21:48 | ED.PDOC ---
General ED Provider: Dr. NORMA JETT Chief Complaint: Allergic Reaction Stated Complaint: Patient had allergic reaction with Itching all over the body. gave him Epi injection, now he is jittery. Time Seen by Physician: 21:46 Mode of Arrival: Wheelchair Information Source: Patient, Family Primary Care Provider: TULIO MUROLE Nursing and Triage Documentation Reviewed and Agree: Yes Reviewed sepsis parameters & appropriate labs ordered?: No System Inflammatory Response Syndrome: Not Applicable Sepsis Protocol: For patient's 13 years and over: Temp is 96.8 and below OR 101 and greater Pulse >90 BPM Resp >20/minute Acutely Altered Mental Status Are patient's symptoms suggestive of a new infection, such as: -Pneumonia -Skin, Soft Tissue -Endocarditis -UTI -Bone, Joint Infection -Implantable Device -Acute Abdominal Infection -Wound Infection -Meningitis -Blood Stream Catheter Infection -Unknown Environmental Complaint Exam - Allergic Reaction Complaint/Exam Symptoms Are: Still present Timing: Constant Initial Severity: Moderate Current Severity: Moderate Location: Diffuse Character: Present: Pruritis Aggravating: Reports: None Alleviating: Reports: None Associated Signs and Symptoms: Denies: Difficulty breathing, Cough, Wheezing, Chest pain, Hoarseness, Throat tightening, Throat swelling, Rash, Abdominal pain , Diaphoresis, Lightheadedness, Syncope, Nausea, Vomiting Possible Reaction To: Reports: Unknown Diphenhydramine Prior to Arrival: No Epinephrine Auto Injector Prior to Arrival: Yes Respiratory Distress: None Differential Diagnoses: Local Allergic Reaction Review of Systems - Review Of Systems Constitutional: Reports: No symptoms Eyes: Reports: No symptoms Ears, Nose, Mouth, Throat: Reports: No symptoms Respiratory: Reports: No symptoms Cardiac: Reports: No symptoms GI: Reports: No symptoms : Reports: No symptoms Musculoskeletal: Reports: No symptoms Skin: Reports: No symptoms Neurological: Reports: No symptoms Endocrine: Reports: No symptoms Hematologic/Lymphatic: Reports: No symptoms All Other Systems: Reviewed and Negative Past Medical History - Past Medical History Previously Healthy: No Endocrine: Reports: None Cardiovascular: Reports: None Respiratory: Reports: None Hematological: Reports: None Gastrointestinal: Reports: None Genitourinary: Reports: None Neuro/Psych: Reports: Seizure Musculoskeletal: Reports: None Cancer: Reports: None Other Pertinent Past Medical History: Brain cyst - Surgical History General Surgical History: Reports: Other (Had left facial cyst removed today ) - Family History Family History: Reports: None - Social History Smoking Status: Current every day smoker, Heavy tobacco smoker Hx Substance Use: No Alcohol Screening: Occasionally - Immunizations Tetanus Shot up to Date: Yes Physical Exam - Physical Exam Appearance: Ill-appearing Eyes: MANDO, EOMI, Conjunctiva clear ENT: Ears normal, Nose normal, Oropharynx normal Respiratory: Airway patent, Breath sounds clear, Breath sounds equal, Respirations nonlabored Cardiovascular: RRR, Pulses normal, No rub, No murmur GI/: Soft, Nontender, No masses, Bowel sounds normal, No Organomegaly Musculoskeletal: Normal strength, ROM intact, No edema, No calf tenderness Skin: Warm, Dry, Normal color Neurological: Sensation intact, Motor intact, Reflexes intact, Cranial nerves intact, Alert, Oriented Psychiatric: Affect appropriate, Mood appropriate Critical Care Note - Critical Care Note Total Time (mins): 15 Course - Course Orders, Labs, Meds: Orders Category Date Time Status Saline Lock [ED IV/MEDIPORT/POWERPORT] .ONCE EMERGENCY 11/24/17 20:39 Active 0.9 % Sodium Chloride [Saline Flush] MEDS 11/24/17 20:39 Ordered 1 syr IVF PRN PRN Hydroxyzine HCl [Atarax] MEDS 11/24/17 20:53 Discontinued 25 mg .ROUTE .STK-MED ONE Hydroxyzine HCl [Atarax] MEDS 11/24/17 20:57 Discontinued 25 mg PO ONCE STA Hydroxyzine HCl [Vistaril Inj] MEDS 11/24/17 20:39 Discontinued 25 mg IM ONCE STA Methylprednisolone Sod Succ/Pf [Solu-Medrol 125 mg] MEDS 11/24/17 20:39 Discontinued 80 mg IVP ONCE STA Sodium Chloride 0.9% [Sodium Chloride] 500 ml MEDS 11/24/17 20:39 Discontinued IV BOLUS Medications Generic Name Dose Route Start Last Admin Trade Name Freq PRN Reason Stop Dose Admin Sodium Chloride 1 syr 11/24/17 20:39 11/24/17 20:59 Saline Flush IVF 1 syr PRN PRN Administration To flush IV Discontinued Medications Generic Name Dose Route Start Last Admin Trade Name Freq PRN Reason Stop Dose Admin Hydroxyzine HCl 25 mg 11/24/17 20:39 11/24/17 20:54 Vistaril Inj IM 11/24/17 20:40 Not Given ONCE STA Hydroxyzine HCl 25 mg 11/24/17 20:57 11/24/17 21:00 Atarax PO 11/24/17 20:58 25 mg ONCE STA Administration Sodium Chloride 500 mls @ 500 mls/hr 11/24/17 20:39 11/24/17 20:59 Sodium Chloride IV 11/24/17 21:38 500 mls/hr BOLUS STA Administration Methylprednisolone Sodium Succinate 80 mg 11/24/17 20:39 11/24/17 20:58 Solu-Medrol 125 Mg IVP 11/24/17 20:40 80 mg ONCE STA Administration Vital Signs: Temp Pulse Resp BP Pulse Ox 11/24/17 21:28 78 123/67 98 11/24/17 20:52 88 137/73 95 11/24/17 20:21 98 F 93 H 18 146/77 H 96 Departure - Departure Time of Disposition: 21:50 Disposition: HOME SELF-CARE Discharge Problem: Allergic state Instructions: General Allergic Reaction (ED) Condition: Stable Pt referred to PMD for follow-up: Yes IPMP verified?: No Additional Instructions: avoid allergens f/u with PMD he is feeling better now. Prescriptions: Prednisone 10 mg PO BIDWM #14 tablet Allergies/Adverse Reactions: Allergies ceftriaxone [From Rocephin] Adverse Reaction (Verified 11/10/17 07:38) latex Adverse Reaction (Verified 11/10/17 07:38) levetiracetam [From Keppra] Adverse Reaction (Verified 11/10/17 07:38) Penicillins Adverse Reaction (Verified 11/10/17 07:38) amoxcillin Adverse Reaction (Severe, Uncoded 11/15/16 20:09) Anaphylaxis Home Medications: Ambulatory Orders Divalproex Sodium [Depakote] 500 mg PO BID 03/31/14 Epinephrine [Epipen 2-Gal] 0.3 mg IJ ONCE PRN #1 ml 07/11/15 Valacyclovir HCl [Valtrex] 500 mg PO Q12HR 11/15/16 Calcium Carbonate [Calcium] 500 mg PO DAILY 11/10/17 Prednisone 10 mg PO BIDWM #14 tablet 11/24/17 Disposition Discussed With: Patient, Family
[2017-11-24 21:49] VITALS: BP 125/64
== END 2017-11-24 22:00 | disposition home or self-care (01) ==
LOC: ED 20:21
DX: T78.40XA Allergy, unspecified, initial encounter (principal); L29.9 Pruritus, unspecified; F17.210 Nicotine dependence, cigarettes, uncomplicated
CPT/HCPCS: 96360; 96375; 99283

== ENCOUNTER 2018-03-26 17:09 | Outpatient (CLI) | END 2018-03-26 17:10 | disposition home or self-care (01) | LOC: OUTPT 17:09 | PROVIDERS: ATTEND Clinical Nurse Specialist Adult Health | DX: Z51.81 Encounter for therapeutic drug level monitoring (principal); Z79.899 Other long term (current) drug therapy | CPT/HCPCS: 36415; 80053; 80164; 85025 ==

== ENCOUNTER 2018-05-16 17:31 | Outpatient (CLI) | payer OTHER | END 2018-05-16 17:32 | disposition home or self-care (01) | LOC: LAB 17:31 | PROVIDERS: ATTEND Clinical Nurse Specialist Adult Health | DX: E87.1 Hypo-osmolality and hyponatremia (principal) | CPT/HCPCS: 36415; 80048 ==

== ENCOUNTER 2018-08-25 07:53 | Outpatient (CLI) ==
--- NOTE | 2018-08-25 09:48 | MRI ---
EXAM: MRI right knee without contrast. HISTORY: Right knee pain. No right knee surgery reported. Knee gave out.. TECHNIQUE: Using a local extremity coil on a high field strength magnet multiplanar multisequence MR I was performed of the right knee without intravenous or intra-articular gadolinium contrast.. COMPARISON: MRI right knee 01/23/2015. FINDINGS: I do not have prior radiographs of the right knee available for comparison at the time of this dictation. Within the medial compartment the medial meniscus is intact without discrete surfacing meniscal tear. The medial compartment cartilage congruent without focal underlying subchondral edema. Within the lateral compartment lateral meniscus is intact without discrete surfacing meniscal tear. The lateral compartment cartilage congruent without focal underlying subchondral edema. . Within the patellofemoral compartment the patellar remains seated with intact medial and lateral noe llar retinaculum.. 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 Specif ically there remains a 14 mm area of chondrosis with cartilage ulceration some of which is full-thick ness with chondral flap formation. Underlying subchondral edema. The trochlear groove cartilage rem ains relatively congruent. Patellofemoral compartment productive osteophyte formation. Small right knee effusion. Prominent type C medial patella plica. Tiny 3 mm filling defect medial c ompartment at the joint line may lie loose. Just posterior tiny 3 mm filling defect with surrounding fluid at the joint line may lie loose. Intact ACL and PCL fibers. The extensor mechanism is intact . The medial collateral ligament as well as lateral collateral ligament complex and posterolateral c orner intact. Overall bone marrow signal intensity shows no acute fracture or bone erosions.. IMPRESSION: No discrete surfacing meniscal tear identified. 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 Patellofemoral compartment productive osteophyte formation. Small right knee effusion. Type C medial patella plica. 3 mm filling defects at the joint line may lie loose. Intact cruciate and collateral ligaments.
== END 2018-08-25 07:54 | disposition home or self-care (01) ==
LOC: RAD 07:53
PROVIDERS: ATTEND Nurse Practitioner Family
DX: M25.561 Pain in right knee (principal)

== ENCOUNTER 2018-11-14 09:19 | Outpatient (CLI) ==
[2017-11-24 20:31] VITALS: BMI 22.3
== END 2018-11-14 09:20 | disposition home or self-care (01) ==
LOC: LAB 09:19
PROVIDERS: ATTEND Clinical Nurse Specialist Adult Health
DX: Z51.81 Encounter for therapeutic drug level monitoring (principal)
CPT/HCPCS: 36415; 80048

== ENCOUNTER 2019-06-28 07:31 | Outpatient (CLI) ==
[2017-11-24 20:31] VITALS: BMI 22.3
== END 2019-06-28 07:32 | disposition home or self-care (01) ==
LOC: LAB 07:31
PROVIDERS: ATTEND Clinical Nurse Specialist Adult Health
DX: Z51.81 Encounter for therapeutic drug level monitoring (principal)
CPT/HCPCS: 36415; 80053; 80164; 85027